=== PATIENT | female | born 1965 | race Two or more races ===

== ENCOUNTER → 2017-08-31 | Emergency (ER) | payer OTHER | END | disposition left against medical advice (07) | LOC: ER 16:32 | DX: Z53.20 Procedure and treatment not carried out because of patient's decision for unspecified reasons (principal) ==

== ENCOUNTER 2018-12-08 14:05 | Outpatient (CLI) | payer OTHER | END 2018-12-08 14:13 | disposition home or self-care (01) | LOC: MAMO-SONO 14:05 | DX: Z12.31 Encounter for screening mammogram for malignant neoplasm of breast (principal); Z87.898 Personal history of other specified conditions; N60.11 Diffuse cystic mastopathy of right breast; N60.12 Diffuse cystic mastopathy of left breast ==

== ENCOUNTER 2021-01-17 10:54 | Outpatient (CLI) | payer OTHER | END 2021-01-17 11:07 | disposition home or self-care (01) | LOC: MAMO-SONO 10:54 | PROVIDERS: ATTEND Student in an Organized Health Care Education/Training Program | DX: N60.11 Diffuse cystic mastopathy of right breast (principal); N60.12 Diffuse cystic mastopathy of left breast; Z12.31 Encounter for screening mammogram for malignant neoplasm of breast ==

== ENCOUNTER 2022-04-15 12:54 | Outpatient (CLI) | payer OTHER | END 2022-04-15 13:07 | disposition home or self-care (01) | LOC: MAMO-SONO 12:54 | PROVIDERS: ATTEND Student in an Organized Health Care Education/Training Program | DX: N60.11 Diffuse cystic mastopathy of right breast (principal); N60.12 Diffuse cystic mastopathy of left breast ==

== ENCOUNTER 2022-10-25 10:42 | Outpatient (CLI) | payer OTHER | END 2022-10-25 10:53 | disposition home or self-care (01) | LOC: RAD 10:42 | PROVIDERS: ATTEND Physical Medicine & Rehabilitation Pain Medicine | DX: M79.671 Pain in right foot (principal); S90.121A Contusion of right lesser toe(s) without damage to nail, initial encounter; S93.521A Sprain of metatarsophalangeal joint of right great toe, initial encounter; R26.89 Other abnormalities of gait and mobility; M20.21 Hallux rigidus, right foot ==

== ENCOUNTER 2023-12-08 10:51 | Outpatient (CLI) | payer OTHER | END 2023-12-08 11:02 | disposition home or self-care (01) | LOC: MAMO-SONO 10:51 | PROVIDERS: ATTEND Student in an Organized Health Care Education/Training Program | DX: N60.11 Diffuse cystic mastopathy of right breast (principal); N60.12 Diffuse cystic mastopathy of left breast ==

== ENCOUNTER 2024-12-08 12:55 | Outpatient (CLI) | payer OTHER | END 2024-12-08 12:59 | disposition home or self-care (01) | LOC: MAMO-SONO 12:55 | PROVIDERS: ATTEND Student in an Organized Health Care Education/Training Program | DX: N60.11 Diffuse cystic mastopathy of right breast (principal); N60.12 Diffuse cystic mastopathy of left breast ==